=== PATIENT | female | born 1995 | race Caucasian/White ===

== ENCOUNTER 2020-04-01 23:39 | Emergency (ER) | payer SELFPAY ==
[~2020-04-01] VITALS: Ht 162.6 cm; Wt 52.2 kg
[2020-04-02] MEDS ORDERED: cefTRIAXone IM 250 MG VIAL IM ONE (01:15)
[2020-04-02] MEDS ORDERED: AZITHROMYCIN 250 MG TABLET. PO ONE (01:15)
[2020-04-02 01:25] LABS: BASO # 0.1 x10^3/uL (0.0-0.2); BASO % 1 % (0-3); EOS # 0.2 x10^3/uL (0.0-0.7); EOS % 2 % (0-3); HEMATOCRIT 33.3 % (36.0-47.0); HEMOGLOBIN 11.2 g/dL (12.0-15.5); LYMPH % 16 % (24-48); MEAN CORPUSCULAR HEMOGLOBIN 28 pg (25-35); MEAN CORPUSCULAR HGB CONC 34 g/dL (31-37); MEAN CORPUSCULAR VOLUME 83 fL (79-100); MONO # 0.8 x10^3/uL (0.0-1.1); MONO % 6 % (0-9); NEUT % 76 % (31-73); PLATELET COUNT 307 x10^3/uL (140-400); RED BLOOD COUNT 3.99 x10^6/uL (3.50-5.40); RED CELL DISTRIBUTION WIDTH 14.2 % (11.5-14.5); WHITE BLOOD COUNT 13.2 x10^3/uL (4.0-11.0)
--- NOTE | 2020-04-02 01:26 | PHYS DOC ---
Past Medical History Past Medical History: No Pertinent History Past Surgical History: No Surgical History Smoking Status: Current Every Day Smoker Alcohol Use: None General Adult EDM: Chief Complaint: SEXUALLY TRANSMITTED DISEASE HPI: HPI: The history was obtained from the patient. Patient is a 24-year-old female with no reported PMH who presents with a chief complaint of concern for STD. She states her boyfriend recently tested positive for chlamydia and gonorrhea yesterday. She is concerned she may have a similar infection given her sexual activity together. She does note vaginal bleeding but states she is currently on her period. She does note some small clot passage. States it is a typical amount for her period. She does not think that she is . Denies any abdominal pain. Denies any vaginal discharge. Denies low back pain. Denies syncope. Denies fevers. Denies urinary symptoms. No other complaints. Review of Systems: Review of Systems: Constitutional: Denies fever or chills. [] Eyes: Denies change in visual acuity. [] HENT: Denies nasal congestion or sore throat. [] Respiratory: Denies cough or shortness of breath. [] Cardiovascular: Denies chest pain or edema. [] GI: Denies abdominal pain, nausea, vomiting, bloody stools or diarrhea. [] : Positive for vaginal bleeding [] Musculoskeletal: Denies back pain or joint pain. [] Integument: Denies rash. [] Neurologic: Denies headache, focal weakness or sensory changes. [] Endocrine: Denies polyuria or polydipsia. [] Lymphatic: Denies swollen glands. [] Psychiatric: Denies depression or anxiety. [] Heart Score: Risk Factors: Risk Factors: DM, Current or recent (<one month) smoker, HTN, HLP, family history of CAD, obesity. Risk Scores: Score 0 - 3: 2.5% MACE over next 6 weeks - Discharge Home Score 4 - 6: 20.3% MACE over next 6 weeks - Admit for Clinical Observation Score 7 - 10: 72.7% MACE over next 6 weeks - Early Invasive Strategies Current Medications: Current Medications Medications (Trade) Dose Ordered Sig/Jose Raul Start Time Stop Time Status Last Admin Dose Admin Azithromycin (Zithromax) 1,000 mg 1X ONCE 04/02/20 01:15 04/02/20 01:16 DC Ceftriaxone Sodium (Rocephin Im) 250 mg 1X ONCE 04/02/20 01:15 04/02/20 01:16 DC Allergies: Allergies: Allergies Coded Allergies Type Severity Reaction Last Updated Verified No Known Drug Allergies 04/02/20 No Physical Exam: PE: Constitutional: Well developed, well nourished, no acute distress, non-toxic appearance. [] HENT: Normocephalic, atraumatic, bilateral external ears normal, oropharynx moist, no oral exudates, nose normal. [] Eyes: PERRLA, EOMI, conjunctiva normal, no discharge. [] Neck: Normal range of motion, no tenderness, supple, no stridor. [] Cardiovascular:Heart rate regular rhythm, no murmur [] Lungs & Thorax: Bilateral breath sounds clear to auscultation [] Abdomen: soft, no tenderness, no masses, no pulsatile masses. [] : Chaperoned by RN. Mild amount of bloody oozing. No vaginal discharge appreciated. Negative CMT. Skin: Warm, dry, no erythema, no rash. [] Back: No tenderness, no CVA tenderness. [] Extremities: No tenderness, no cyanosis, no clubbing, ROM intact, no edema. [] Neurologic: Alert and oriented X 3, normal motor function, normal sensory fu nction, no focal deficits noted. [] Psychologic: Affect normal, judgement normal, mood normal. [] Current Patient Data: Labs: Microbiology 04/02/20 Wet Prep - Final, Complete Laboratory Tests Test 04/02/20 01:17 White Blood Count 13.2 x10^3/uL Red Blood Count 3.99 x10^6/uL Hemoglobin 11.2 g/dL Hematocrit 33.3 % Mean Corpuscular Volume 83 fL Mean Corpuscular Hemoglobin 28 pg Mean Corpuscular Hemoglobin Concent 34 g/dL Red Cell Distribution Width 14.2 % Platelet Count 307 x10^3/uL Neutrophils (%) (Auto) 76 % Lymphocytes (%) (Auto) 16 % Monocytes (%) (Auto) 6 % Eosinophils (%) (Auto) 2 % Basophils (%) (Auto) 1 % Neutrophils # (Auto) 10.0 x10^3/uL Lymphocytes # (Auto) 2.0 x10^3/uL Monocytes # (Auto) 0.8 x10^3/uL Eosinophils # (Auto) 0.2 x10^3/uL Basophils # (Auto) 0.1 x10^3/uL Maternal Serum HCG Beta Subunit < 1 mIU/mL Current Medications Medications (Trade) Dose Ordered Sig/Jose Raul Route PRN Reason Start Time Stop Time Status Last Admin Dose Admin Ceftriaxone Sodium (Rocephin Im) 250 mg 1X ONCE IM 04/02/20 01:15 04/02/20 01:16 DC Azithromycin (Zithromax) 1,000 mg 1X ONCE PO 04/02/20 01:15 04/02/20 01:16 DC Metronidazole (Flagyl) 2,000 mg 1X ONCE PO 04/02/20 01:30 04/02/20 01:34 DC Vital Signs: Vital Signs Date Time Temp Pulse Resp B/P (MAP) Pulse Ox O2 Delivery O2 Flow Rate FiO2 04/02/20 00:08 98.2 106 20 115/64 (81) 97 Room Air 98.2 EKG: EKG: [] Radiology/Procedures: Radiology/Procedures: [] Course & Med Decision Making: Course & Med Decision Making Pertinent Labs and Imaging studies reviewed. (See chart for details) Patient is a well-appearing 24-year-old female presents with chief complaint of concern for STD. Physical exam noted above. Chlamydia and gonorrhea swabs were obtained and are pending. She will be treated prophylactically as she states her recent sexual partner did test positive. She was given Rocephin and azithromycin. Given the wet prep results 2 g of metronidazole were also administered. She denies any urinary symptoms. Furthermore she is declining to provide a urine sample. Beta-hCG level negative. CBC with hemoglobin 11.2. Mild leukocytosis of 13,000. Low concern for PID given she has no abdominal pain or back pain. I did offer ultrasound imaging to which she is also declining. States her bleeding is due to her current menstrual period. Overall I do feel she is appropriate for discharge home. Return precautions were discussed and understood. She is stable for discharge. Danny Disclaimer: Danny Disclaimer: This electronic medical record was generated, in whole or in part, using a voice recognition dictation system. Departure Departure Impression: Primary Impression: Concern about sexually transmitted disease in female without diagnosis Additional Impression: Vaginal bleeding Disposition: HOME, SELF-CARE Condition: GOOD Referrals: NO PCP (PCP) Patient Instructions: Sexually Transmitted Disease Additional Instructions: [facility] [address] [place] [address] [facility] [address] [place] [address] [facility] CARE [address] [place] [address] [facility] [address] [place] [address] [facility] [address] [place] [address] [facility] [address] [place] [address] [facility] [address] [place] [address] [facility] [address] [place] [address] [facility] [address] [place] [address] [facility] Department [address] [place] [address] Justicifation of Admission Dx: Justifications for Admission: Justification of Admission Dx: N/A FRED ELLER DO Apr 02, 2020 01:26
[2020-04-02] MEDS ORDERED: metroNIDAZOLE 500 MG TABLET PO ONE (01:30)
[2020-04-02 02:17] VITALS: BP 114/55
[2020-04-03 21:07] LABS: GC PROBE Positive (Negative)
== END 2020-04-02 02:36 | disposition home or self-care (01) ==
LOC: ER 23:39
DX: N93.9 Abnormal uterine and vaginal bleeding, unspecified (principal); F17.200 Nicotine dependence, unspecified, uncomplicated; Z20.2 Contact with and (suspected) exposure to infections with a predominantly sexual mode of transmission
CPT/HCPCS: 36415; 84702; 85025; 87491; 87591; 96372; 99283; J0696; Q0111

== ENCOUNTER 2020-09-29 06:32 | Emergency (ER) | payer SELFPAY ==
[~2020-09-29] VITALS: Ht 160 cm; Wt 59.1 kg
[2020-09-29 06:38] VITALS: BP 121/63
[2020-09-29] MEDS ORDERED: IBUPROFEN 200 MG TABLET. PO ONE (07:30)
[2020-09-29] MEDS ORDERED: IBUP-1007 PO (07:44)
--- NOTE | 2020-09-29 07:44 | ED.ADGEN ---
Past Medical History Past Medical History: No Pertinent History Past Surgical History: No Surgical History, Other Additional Past Surgical Histo: ORAL SX Smoking Status: Current Every Day Smoker Alcohol Use: None General Adult EDM: Chief Complaint: FOOT INJURY PAIN HPI: HPI: Patient is a 25 year old female coming in for worsening bilateral plantar foot pain. Patient is concerned because her feet to be getting cold. Is homeless has been walking around a lot. Says she has been wearing slippers instead of her sneakers because they are warmer. As the pain is burning and mostly in the bottoms of the feet. No other complaints, no other medical conditions, LMP 2 weeks ago. Review of Systems: Review of Systems: All other systems within normal limits except for as noted in the HPI Allergies: Allergies: Allergies Coded Allergies Type Severity Reaction Last Updated Verified No Known Drug Allergies 04/02/20 No Physical Exam: PE: Constitutional: Well developed, well nourished, no acute distress, non-toxic appearance. [] HENT: Normocephalic, atraumatic, bilateral external ears normal, nose normal. [] Eyes: PERRLA, conjunctiva normal, no discharge. [] Neck: No rigidity, supple, no stridor. [] Cardiovascular: Regular rate and rhythm, brisk cap refill [] Lungs & Thorax: Non labored symmetric respirations, no tachypnea or respiratory distress [] Abdomen: Soft, nondistended. Skin: Warm, dry, no erythema, no rash. Brisk cap refill on feet, no ulcers or lesions. Tenderness over heel and ball of foot. [] Back: Unremarkable Extremities: No deformities, range of motion grossly intact, no lower extremity edema [] Neurologic: Alert and oriented X 3, no focal deficits noted. [] Psychologic: Affect normal, judgement normal, mood normal. [] Current Patient Data: Vital Signs: Vital Signs Date Time Temp Pulse Resp B/P (MAP) Pulse Ox O2 Delivery O2 Flow Rate FiO2 09/29/20 06:38 98.2 103 16 121/63 (82) 98 Room Air 98.2 EKG: EKG: [] Heart Score: Risk Factors: Risk Factors: DM, Current or recent (<one month) smoker, HTN, HLP, family history of CAD, obesity. Risk Scores: Score 0 - 3: 2.5% MACE over next 6 weeks - Discharge Home Score 4 - 6: 20.3% MACE over next 6 weeks - Admit for Clinical Observation Score 7 - 10: 72.7% MACE over next 6 weeks - Early Invasive Strategies Radiology/Procedures: Radiology/Procedures: [] Course & Med Decision Making: Course & Med Decision Making No signs of frostbite or frostbite. Patient has benign skin exam, exam consistent with plantar fasciitis. [] Dragon Disclaimer: Dragon Disclaimer: This electronic medical record was generated, in whole or in part, using a voice recognition dictation system. Departure Departure Impression: Primary Impression: Plantar fasciitis Disposition: 01 DC HOME SELF CARE/HOMELESS Condition: STABLE Referrals: NO PCP (PCP) Additional Instructions: [facility] [address] [place] [address] [facility] [address] [place] [address] [facility] [address] [place] [address] [facility] [address] [place] [address] [facility] [address] [place] [address] [facility] [address] [place] [address] [facility] [address] [place] [address] [facility] [address] [place] [address] [facility] [address] [place] [address] [facility] [address] [place] [address] Scripts Ibuprofen (IBUPROFEN) 600 Mg Tablet 600 MG PO PRN Q6HRS PRN for PAIN, #20 TAB take with food or milk Prov: LOLY NG MD 09/29/20 LOLY NG MD Sep 29, 2020 07:44
== END 2020-09-29 08:04 | disposition home or self-care (01) ==
LOC: ER 06:32
DX: M72.2 Plantar fascial fibromatosis (principal); M79.671 Pain in right foot; M79.672 Pain in left foot; F17.200 Nicotine dependence, unspecified, uncomplicated; Z98.890 Other specified postprocedural states
CPT/HCPCS: 99282

== ENCOUNTER 2020-10-28 10:46 | Emergency (ER) | payer SELFPAY ==
[~2020-10-28] VITALS: Ht 160 cm; Wt 58.2 kg
[~2020-10-28 10:46] MED LIST: IBUP-1007 PO
[2020-10-28 11:34] VITALS: BP 121/74
[2020-10-28 14:06] LABS: BILIRUBIN,URINE SMALL (NEG); CLARITY,URINE CLOUDY; COLOR,URINE YELLOW; NITRITE,URINE NEGATIVE (NEG); PROTEIN,URINE NEGATIVE (NEG-TRACE)
[2020-10-28 14:21] LABS: RBC,URINE 0 /HPF (0-2)
[2020-10-28 14:22] LABS: BACTERIA,URINE 0 /HPF (0-FEW); WBC,URINE OCC /HPF (0-4)
[2020-10-28 14:31] LABS: BARBITURATES NEG (NEG); BENZODIAZEPINES NEG (NEG); CANNABINOIDS POS (NEG); COCAINE NEG (NEG); METHADONE NEG (NEG); OPIATES NEG (NEG); PHENCYCLIDINE NEG (NEG)
[2020-10-28 14:32] LABS: AMPHETAMINE/METHAMPHETAMINE POS (NEG)
[2020-10-28] MEDS ORDERED: DOXYCYCLINE HYCLATE 100 MG TABLET PO ONE (14:45)
[2020-10-28] MEDS ORDERED: cefTRIAXone IM 500 MG VIAL. IM ONE (14:45)
[2020-10-28] MEDS ORDERED: METR500T PO (15:31)
[2020-10-28] MEDS ORDERED: DOXY100T PO (15:31)
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
[2020-10-29 18:14] LABS: GC PROBE Negative (Negative)
== END 2020-10-28 15:42 | disposition home or self-care (01) ==
LOC: ER 10:46
DX: N76.0 Acute vaginitis (principal); A59.09 Other urogenital trichomoniasis; R20.8 Other disturbances of skin sensation; F17.200 Nicotine dependence, unspecified, uncomplicated; Z98.890 Other specified postprocedural states
CPT/HCPCS: 80307; 81001; 81025; 87491; 87529; 87591; 96372; 99284; J0696; Q0111

== ENCOUNTER 2021-11-09 18:12 | Observation (INO) | payer SELFPAY ==
[~2021-11-09 18:12] MED LIST changes: +DOXY100T PO; +METR500T PO
[2021-11-09] MEDS ORDERED: IV RINGERS,LACTATED 1000ML 1,000 ML IV SCH (19:15)
[2021-11-09 19:33] LABS: AMPHETAMINE/METHAMPHETAMINE NEG (NEG); BARBITURATES NEG (NEG); BENZODIAZEPINES NEG (NEG); CANNABINOIDS POS (NEG); COCAINE POS (NEG); METHADONE NEG (NEG); OPIATES NEG (NEG); PHENCYCLIDINE NEG (NEG)
[2021-11-09 19:50] LABS: BACTERIA,URINE MODERATE /HPF (0-FEW); RBC,URINE 0 /HPF (0-2); YEAST,URINE PRESENT /HPF
[2021-11-09 21:53] LABS: BASO # 0.1 x10^3/uL (0.0-0.2); BASO % 1 % (0-3); EOS # 0.3 x10^3/uL (0.0-0.7); EOS % 2 % (0-3); HEMATOCRIT 29.2 % (36.0-47.0); HEMOGLOBIN 9.2 g/dL (12.0-15.5); LYMPH # 2.2 x10^3/uL (1.0-4.8); LYMPH % 15 % (24-48); MEAN CORPUSCULAR HEMOGLOBIN 24 pg (25-35); MEAN CORPUSCULAR HGB CONC 32 g/dL (31-37); MEAN CORPUSCULAR VOLUME 75 fL (79-100); MONO # 0.9 x10^3/uL (0.0-1.1); MONO % 6 % (0-9); NEUT # 11.4 x10^3/uL (1.8-7.7); NEUT % 77 % (31-73); PLATELET COUNT 160 x10^3/uL (140-400); RED BLOOD COUNT 3.87 x10^6/uL (3.50-5.40); RED CELL DISTRIBUTION WIDTH 16.6 % (11.5-14.5); WHITE BLOOD COUNT 14.9 x10^3/uL (4.0-11.0)
[2021-11-09 22:10] LABS: ALBUMIN 2.8 g/dL (3.4-5.0); ALBUMIN/GLOBULIN RATIO 0.7 (1.0-1.7); CALCIUM 9.2 mg/dL (8.5-10.1); CREATININE 0.6 mg/dL (0.6-1.0); GFR 119.9; POTASSIUM 3.7 mmol/L (3.5-5.1); TOTAL BILIRUBIN 0.3 mg/dL (0.2-1.0); TOTAL PROTEIN 7.1 g/dL (6.4-8.2); URIC ACID 4.5 mg/dL (2.6-6.0)
[2021-11-12 17:19] LABS: RUBELLA IGG ANTIBODY 1.9 index (Immune >0.99)
== END 2021-11-09 21:42 | disposition home or self-care (01) ==
LOC: 3 SO LND 18:12
PROVIDERS: ADMIT Obstetrics & Gynecology; ATTEND Obstetrics & Gynecology
DX: O62.9 Abnormality of forces of labor, unspecified (principal); O99.891 Other specified diseases and conditions complicating pregnancy; M54.9 Dorsalgia, unspecified; O26.893 Other specified pregnancy related conditions, third trimester; R10.2 Pelvic and perineal pain; Z3A.41 41 weeks gestation of pregnancy; Z79.899 Other long term (current) drug therapy
CPT/HCPCS: 36415; 59025; 80053; 80307; 81001; 83615; 84550; 85025; 86592; 86703; 86762; 86787; 86803; 86850; 86900; 86901; 87086; 87340; G0378; G0379

== ENCOUNTER 2021-11-11 15:07 | Inpatient (IN) | payer SELFPAY ==
[~2021-11-11] VITALS: Ht 160 cm; Wt 70.0 kg
[2021-11-11] MEDS ORDERED: IV RINGERS,LACTATED 1000ML 1,000 ML IV PRN (15:30)
[2021-11-11] MEDS ORDERED: IV RINGERS,LACTATED 1000ML 1,000 ML IV SCH (15:45)
[2021-11-11] MEDS ORDERED: TERBUTALINE 1 MG/ML VIAL. SQ PRN (15:45)
[2021-11-11] MEDS ORDERED: 0.9 % SODIUM CHLORIDE 10 ML DISP.SYRIN. IV PRN ×2 (15:45→17:00)
[2021-11-11] MEDS ORDERED: LIDOCAINE 1% PF 30 ML VIAL. INJ PRN (15:45)
[2021-11-11] MEDS ORDERED: OXYTOCIN 30 UNIT/500 ML PREMIX 500 ML IV PRN ×3 (15:45→17:00)
[2021-11-11] MEDS ORDERED: fentaNYL PF VIAL 100 MCG/2 ML VIAL IVP ONE (16:00)
[2021-11-11 16:12] VITALS: BP 139/83
[2021-11-11 16:21] LABS: BASO # 0.1 x10^3/uL (0.0-0.2); BASO % 0 % (0-3); EOS # 0.2 x10^3/uL (0.0-0.7); EOS % 1 % (0-3); HEMATOCRIT 30.4 % (36.0-47.0); HEMOGLOBIN 9.5 g/dL (12.0-15.5); LYMPH # 1.6 x10^3/uL (1.0-4.8); LYMPH % 10 % (24-48); MEAN CORPUSCULAR HEMOGLOBIN 23 pg (25-35); MEAN CORPUSCULAR HGB CONC 31 g/dL (31-37); MEAN CORPUSCULAR VOLUME 74 fL (79-100); MONO # 0.7 x10^3/uL (0.0-1.1); MONO % 4 % (0-9); NEUT # 13.4 x10^3/uL (1.8-7.7); NEUT % 84 % (31-73); PLATELET COUNT 180 x10^3/uL (140-400); RED BLOOD COUNT 4.08 x10^6/uL (3.50-5.40); RED CELL DISTRIBUTION WIDTH 16.7 % (11.5-14.5); WHITE BLOOD COUNT 15.9 x10^3/uL (4.0-11.0)
--- NOTE | 2021-11-11 16:53 | PDOC1 ---
[facility] H&P Date of Admission: Date of Admission: Nov 11, 2021 at 15:07 History of Present Illness: presents at 41.0 weeks by LMP. No care. Reports onset of UCs at 1300, increasing in frequency and intensity prior to hospital arrival. SVE 5cm on admission. GBS unknown, no known history of GBS sepsis in prior deliveries. PMH unremarkable. Previous x 2. Pelvis proven to 8lbs. History of substance abuse, cocaine and MJ per UDS. A+ Hep B Neg Hep C Neg HIV Neg RPR NR Rubella: Pending GBS: Pending Past Medical History: Cardiovascular: No pertinent hx Pulmonary: No pertinent hx GI: No pertinent hx Heme/Onc: No pertinent hx Hepatobiliary: No pertinent hx Psych: No pertinent hx Rheumatologic: No pertinent hx Infectious disease: No pertinent hx ENT: No pertinent hx Renal/: No pertinent hx Endocrine: No pertinent hx Dermatology: No pertinent hx Grav: 4 Para: 2 Social History: Smoke: No ALCOHOL: none Allergies: Coded Allergies: No Known Drug Allergies (Unverified , 04/02/20) Physical Exam: Vital Signs: Vital Signs Date Time Temp Pulse Resp B/P (MAP) Pulse Ox O2 Delivery O2 Flow Rate FiO2 11/11/21 16:12 97.6 111 22 139/83 (101) 97.6 PE: GENERAL: No apparent distress. Alert and oriented. HEENT: Head normocephalic, atraumatic. NECK: Supple LUNGS: Clear to auscultation. HEART: RRR, S1, S2 present, pulses intact ABDOMEN: Soft, positive bowel sounds. EXTREMITIES: No cyanosis or edema. NEUROLOGIC: Normal speech, normal tone PSYCHIATRIC: Normal affect, normal mood. SKIN: No ulceration. Labs: Laboratory Tests Test 11/11/21 15:30 White Blood Count 15.9 x10^3/uL (4.0-11.0) H Red Blood Count 4.08 x10^6/uL (3.50-5.40) Hemoglobin 9.5 g/dL (12.0-15.5) L Hematocrit 30.4 % (36.0-47.0) L Mean Corpuscular Volume 74 fL (79-100) L Mean Corpuscular Hemoglobin 23 pg (25-35) L Mean Corpuscular Hemoglobin Concent 31 g/dL (31-37) Red Cell Distribution Width 16.7 % (11.5-14.5) H Platelet Count 180 x10^3/uL (140-400) Neutrophils (%) (Auto) 84 % (31-73) H Lymphocytes (%) (Auto) 10 % (24-48) L Monocytes (%) (Auto) 4 % (0-9) Eosinophils (%) (Auto) 1 % (0-3) Basophils (%) (Auto) 0 % (0-3) Neutrophils # (Auto) 13.4 x10^3/uL (1.8-7.7) H Lymphocytes # (Auto) 1.6 x10^3/uL (1.0-4.8) Monocytes # (Auto) 0.7 x10^3/uL (0.0-1.1) Eosinophils # (Auto) 0.2 x10^3/uL (0.0-0.7) Basophils # (Auto) 0.1 x10^3/uL (0.0-0.2) Platelet Estimate Pending SARS-CoV-2 Antigen (Rapid) Negative (NEGATIVE) Laboratory Tests 11/11/21 15:30 Laboratory Tests 11/11/21 15:30 Assessment & Plan: [id number] @ 41.0 weeks 1. Spontaneous Labor 2. Anemia 3. GBS unknown 4. Substance abuse 5. No PNC 6. Cat I FHT, 125, moderate variability, + accels, early decels. MARGARETTE MCCLOUD CNM Nov 11, 2021 16:53
[2021-11-11 16:57] LABS: % BANDS 4 % (0-9); % EOS 2 % (0-5); % LYMPHS 6 % (24-48); % MONOS 4 % (0-10); % SEGS 84 % (35-66); MICROCYTOSIS SLIGHT; PLT ESTIMATE ADEQUATE (ADEQUATE)
[2021-11-11 16:58] LABS: BURR CELLS PRESENT
--- NOTE | 2021-11-11 16:59 | PDOC4 ---
VAGINAL DELIVERY DATE DATE: 11/11/21 TIME: 16:57 TIME 1630 : 4 Para: 3 EDC: Nov 04, 2021 EGA: 41.0 VAGINAL DELIVERY: VTX VACCUM ASSISTED: No PLACENTA: Spontaneous 7/9 SEX: Female WEIGHT Weight [8lb4oz] Nuchal Cord: No Amniotic Fluid: Clear PAIN: Natural EPISIOTOMY: No EXTENSION: No EBL 500mL CONDITION Both mother and infant are stable. Routine PP course anticipated. ADDITIONAL NOTES Perineum intact. Signs of Intrauterine Infectio: None Shoulder Dystocia: No DIAGNOSIS MARGARETTE CHURCHILL CNM Nov 11, 2021 16:59
[2021-11-11] MEDS ORDERED: SIMETHICONE 80 MG TAB.CHEW PO PRN (17:00)
[2021-11-11] MEDS ORDERED: HYDROcodone/APAP 5/325MG 1 TAB TABLET PO PRN ×2 (17:00)
[2021-11-11] MEDS ORDERED: BENZOCAINE 20% TOPICAL AEROSOL SPRAY 57GM CAN. TP PRN (17:00)
[2021-11-11] MEDS ORDERED: MAG HYDROX/ALUMINUM HYD/SIMETH 30 ML ORAL.SUSP PO PRN (17:00)
[2021-11-11] MEDS ORDERED: ZOLPIDEM 5 MG TABLET. PO PRN (17:00)
[2021-11-11] MEDS ORDERED: MMR per PROTOCOL. MC PRN (17:00)
[2021-11-11] MEDS ORDERED: HYDROCORTISONE 1% TOPICAL OINTMENT 30GM TUBE. TP PRN (17:00)
[2021-11-11] MEDS ORDERED: IBUPROFEN 400 MG TABLET. PO PRN (17:00)
[2021-11-11] MEDS ORDERED: diphenhydrAMINE HCL 25 MG CAPSULE PO PRN (17:00)
[2021-11-11] MEDS ORDERED: PHENYLEPH/MINERAL OIL/PETROLAT RECTAL OINTMENT TUBE. RC PRN (17:00)
[2021-11-11] MEDS ORDERED: TDaP (BOOSTRIX) per PROTOCOL. MC PRN (17:00)
[2021-11-11] MEDS: IBUPROFEN 400 MG TABLET. PO PRN (19:46)
[2021-11-11 20:05] VITALS: BP 119/71
[2021-11-12 00:20] VITALS: BP 122/76
[2021-11-12 04:30] VITALS: BP 128/69
[2021-11-12] MEDS: IBUPROFEN 400 MG TABLET. PO PRN ×2 (04:44→10:33)
[2021-11-12] MEDS: ACETAMINOPHEN 325 MG TABLET. PO PRN ×3 (04:44→18:31)
[2021-11-12 08:15] VITALS: BP 118/71
[2021-11-12 09:54] LABS: BASO # 0.1 x10^3/uL (0.0-0.2); BASO % 0 % (0-3); EOS # 0.2 x10^3/uL (0.0-0.7); EOS % 1 % (0-3); HEMATOCRIT 26.5 % (36.0-47.0); HEMOGLOBIN 8.2 g/dL (12.0-15.5); LYMPH % 12 % (24-48); MEAN CORPUSCULAR HEMOGLOBIN 23 pg (25-35); MEAN CORPUSCULAR HGB CONC 31 g/dL (31-37); MEAN CORPUSCULAR VOLUME 75 fL (79-100); MONO % 6 % (0-9); NEUT # 13.4 x10^3/uL (1.8-7.7); NEUT % 80 % (31-73); PLATELET COUNT 153 x10^3/uL (140-400); RED BLOOD COUNT 3.52 x10^6/uL (3.50-5.40); RED CELL DISTRIBUTION WIDTH 16.7 % (11.5-14.5); WHITE BLOOD COUNT 16.8 x10^3/uL (4.0-11.0)
--- NOTE | 2021-11-12 09:55 | PDOC ---
FULL TIME PARAMEDIC PROGRESS NOTE Date of Service: DATE: 11/12/21 TIME: 09:54 Subjective: Pt with good pain control. Mary Anne PO. Voiding. Minimal lochia. Objective: Vital Signs: Vital Signs Date Time Temp Pulse Resp B/P (MAP) Pulse Ox O2 Delivery O2 Flow Rate FiO2 11/11/21 16:12 97.6 111 22 139/83 (101) 97.6 11/11/21 20:05 100 Room Air Vital Signs Date Time Temp Pulse Resp B/P (MAP) Pulse Ox O2 Delivery O2 Flow Rate FiO2 11/12/21 04:30 98.4 88 16 128/69 (88) 99 Room Air 98.4 Labs: Laboratory Tests Test 11/11/21 15:30 White Blood Count 15.9 x10^3/uL (4.0-11.0) H Red Blood Count 4.08 x10^6/uL (3.50-5.40) Hemoglobin 9.5 g/dL (12.0-15.5) L Hematocrit 30.4 % (36.0-47.0) L Mean Corpuscular Volume 74 fL (79-100) L Mean Corpuscular Hemoglobin 23 pg (25-35) L Mean Corpuscular Hemoglobin Concent 31 g/dL (31-37) Red Cell Distribution Width 16.7 % (11.5-14.5) H Platelet Count 180 x10^3/uL (140-400) Neutrophils (%) (Auto) 84 % (31-73) H Lymphocytes (%) (Auto) 10 % (24-48) L Monocytes (%) (Auto) 4 % (0-9) Eosinophils (%) (Auto) 1 % (0-3) Basophils (%) (Auto) 0 % (0-3) Neutrophils # (Auto) 13.4 x10^3/uL (1.8-7.7) H Lymphocytes # (Auto) 1.6 x10^3/uL (1.0-4.8) Monocytes # (Auto) 0.7 x10^3/uL (0.0-1.1) Eosinophils # (Auto) 0.2 x10^3/uL (0.0-0.7) Basophils # (Auto) 0.1 x10^3/uL (0.0-0.2) Segmented Neutrophils % 84 % (35-66) H Band Neutrophils % 4 % (0-9) Lymphocytes % 6 % (24-48) L Monocytes % 4 % (0-10) Eosinophils % 2 % (0-5) Platelet Estimate Adequate (ADEQUATE) Microcytosis Slight Adore Cells Present SARS-CoV-2 Antigen (Rapid) Negative (NEGATIVE) Laboratory Tests 11/11/21 15:30 Laboratory Tests 11/11/21 15:30 Physical Exam: GENERAL: No apparent distress. Alert and oriented. HEENT: Head normocephalic, atraumatic. NECK: Supple LUNGS: Clear to auscultation. HEART: RRR, S1, S2 present, pulses intact ABDOMEN: Soft, positive bowel sounds. EXTREMITIES: No cyanosis or edema. NEUROLOGIC: Normal speech, normal tone PSYCHIATRIC: Normal affect, normal mood. SKIN: No ulceration. FFNT below umb No C/C/E Assessment & Plan: A/P 26y [id number] #1 s/p 1.) PP doing well 2.) No care drop in labs ordered 3.) Anemia Hgb 9.5 -> pending 4.) H/o substance abuse 5.) Cont PP care CARMEN VILLASENOR MD Nov 12, 2021 09:55
[2021-11-12] MEDS: DOCUSATE SODIUM 100 MG CAPSULE. PO PRN (10:33)
[2021-11-12] MEDS: FERROUS SULFATE 325 MG TABLET. PO SCH ×2 (10:34→18:31)
[2021-11-12 14:45] VITALS: BP 134/64
--- NOTE | 2021-11-12 16:53 | NUR ---
SS following up with referral regarding mother tested positive for THC and Cocaine on 11/09/2021. Mother also reporting that other children have been adopted. SS reviewed mother and chart and spoke with RN, Mariah. Mother reported to RN that she lives in [facility]. Mother provided registration with [facility]. Per RN, mother is bonding with infant. DCF hotline report made for concerns with substance use, social situation, and previous adoption of other children. Intake# [id number]. RN Mariah, notified. SS will continue to follow.
[2021-11-12 18:30] VITALS: BP 128/74
[2021-11-12 20:00] VITALS: BP 112/69
[2021-11-13 02:30] VITALS: BP 129/81
[2021-11-13 07:36] VITALS: BP 129/80
[2021-11-13] MEDS: FERROUS SULFATE 325 MG TABLET. PO SCH ×2 (08:32→18:03)
[2021-11-13] MEDS: DOCUSATE SODIUM 100 MG CAPSULE. PO PRN ×2 (08:32→18:03)
[2021-11-13] MEDS: MULTIVITAMIN with MINERAL TABLET. PO SCH (08:33)
--- NOTE | 2021-11-13 09:59 | NUR ---
SS following up. SS met with mother and clarified demographics. Mother reported that she is currently living at [address] [place] [address]. Mother reported that he [place] address registration listed is old. Mother reported that she has a referral to WIC in place. Mother reported that she has resources for [employer] and that Medicaid applications for bother she and baby have been completed. Mother reported having good family support and transportation. Mother reported that her father is bringing car seat to hospital today. SS sent e-mails to [facility] supervisors updating them on mother's current address and residency and requesting update on hotline report made on 11/12/2021, Intake# [id number]. PAT team meeting with mother today to provide resources. SS will continue to follow.
--- NOTE | 2021-11-13 16:15 | NUR ---
1615 RN to room, VS stable no c/o pain. SL dc'd at this time, catheter intact with pressure applied to site and secured with band aid. patient asks when DC will be. Patient states she was told she could be dc'd after 1pm. Rn explains to parents about baby has not been Dc'd yet. Patient asks to speak with the baby Dr. Mother states "I will not leave without my baby". The SALVAGE MECHANIC was notified and will visit with parents.
[2021-11-13] MEDS: IBUPROFEN 400 MG TABLET. PO PRN (18:03)
--- NOTE | 2021-11-13 18:16 | NUR ---
1710 T Oleg PERL DEVELOPER and RN to room to speak with parents. Parents were talked to regarding baby not being dc'd and the need to stay until we hear back from the state regarding referal made. Mom was explained to about testing positive for cocaine and Marijuana and the process to assure safety for the baby. Mom became upset and surprised of test results, denying cocaine use and stating "you all must be on something". patient was explained about concerns for the babies well being and safety explaining how staff has to remind her to feed baby throughout the night and a gap of 4.5 hrs with no feeds even after educating mom on feedings. Mom states " my baby is fine, I feed her when I want to. This is BS". Patient asks for a recheck on urine stating "I do not use cocaine". Mom was upset saying "I will not leave without my baby". Parents were told that staff will continue to attemt to reach out to the state however being so late in the day, most likely the plan is to stay the night. Jonny CHANEY was called and notified with no other orders at this time. 1800 RN to room discussed plan with patient and SO. Parents calm and voiced understanding. Baby remains rooming in with mom at this time.
--- NOTE | 2021-11-13 19:00 | PDOC ---
PATCHER PROGRESS NOTE Date of Service: DATE: 11/13/21 TIME: 18:54 Subjective: Doing well. Pain well managed with PO meds. Tolerates activity, diet, and voiding without difficulty. Meeting with [facility] tomorrow, requests formula in the interim. Objective: Objective: FF@U/1, scant lochia. Vital Signs: Vital Signs Date Time Temp Pulse Resp B/P (MAP) Pulse Ox O2 Delivery O2 Flow Rate FiO2 11/12/21 08:15 97.9 80 20 118/71 (87) 99 Room Air 97.9 Vital Signs Date Time Temp Pulse Resp B/P (MAP) Pulse Ox O2 Delivery O2 Flow Rate FiO2 11/13/21 09:00 Room Air 11/13/21 07:36 98.2 90 18 129/80 (96) 100 98.2 Physical Exam: GENERAL: No apparent distress. Alert and oriented. HEENT: Head normocephalic, atraumatic. NECK: Supple LUNGS: Clear to auscultation. HEART: RRR, S1, S2 present, pulses intact ABDOMEN: Soft, positive bowel sounds. EXTREMITIES: No cyanosis or edema. NEUROLOGIC: Normal speech, normal tone PSYCHIATRIC: Normal affect, normal mood. SKIN: No ulceration. Assessment & Plan: PPD#2 Routine PP course, DCFS pending 2/2 +UA. Discharge instructions reviewed to include s/sx of normal engorgement vs. mastitis, pain/bleeding precautions, preeclampsia alarm symptoms, and normal baby blues vs. sx concerning for PPD. Pt. and partner v/u of all. A/P 26y [id number] #1 s/p 1.) PP doing well 2.) No care drop in labs ordered 3.) Anemia Hgb 9.5 -> 8.2 - FeSO4 BID 4.) H/o substance abuse MARGARETTE MCCLOUD CNM Nov 13, 2021 19:00
[2021-11-13 20:10] LABS: RUBELLA IGG ANTIBODY 1.76 index (Immune >0.99)
[2021-11-13 21:00] VITALS: BP 129/75
[2021-11-14] MEDS: ACETAMINOPHEN 325 MG TABLET. PO PRN (00:51)
[2021-11-14] MEDS: DOCUSATE SODIUM 100 MG CAPSULE. PO PRN ×2 (03:02→09:22)
[2021-11-14] MEDS: IBUPROFEN 400 MG TABLET. PO PRN ×2 (03:02→12:51)
[2021-11-14 06:03] VITALS: BP 123/74
[2021-11-14] MEDS: FERROUS SULFATE 325 MG TABLET. PO SCH ×2 (08:11→17:55)
[2021-11-14] MEDS ORDERED: DIPHTH,PERTUSS(ACELL),TET TOX 0.5 ML DISP.SYRIN. VAX IM ONE (09:00)
[2021-11-14] MEDS ORDERED: IBUP-1060 PO (09:14)
[2021-11-14] MEDS ORDERED: DOCU-109 PO (09:14)
[2021-11-14] MEDS ORDERED: FERR325T14 PO (09:14)
[2021-11-14] MEDS: MULTIVITAMIN with MINERAL TABLET. PO SCH (09:20)
--- NOTE | 2021-11-14 10:55 | PDOC ---
BARREL POLISHER INSIDE PROGRESS NOTE Date of Service: DATE: 11/14/21 TIME: 10:55 Subjective: Pt with good pain control. Mary Anne PO. Voiding. Minimal lochia. Objective: Vital Signs: Vital Signs Date Time Temp Pulse Resp B/P (MAP) Pulse Ox O2 Delivery O2 Flow Rate FiO2 11/13/21 07:36 98.2 90 18 129/80 (96) 100 Room Air 98.2 Vital Signs Date Time Temp Pulse Resp B/P (MAP) Pulse Ox O2 Delivery O2 Flow Rate FiO2 11/14/21 09:00 Room Air 11/14/21 06:03 98.0 91 20 123/74 (90) 100 98.0 Physical Exam: GENERAL: No apparent distress. Alert and oriented. HEENT: Head normocephalic, atraumatic. NECK: Supple LUNGS: Clear to auscultation. HEART: RRR, S1, S2 present, pulses intact ABDOMEN: Soft, positive bowel sounds. EXTREMITIES: No cyanosis or edema. NEUROLOGIC: Normal speech, normal tone PSYCHIATRIC: Normal affect, normal mood. SKIN: No ulceration. FFNT below umb No C/C/E Assessment & Plan: A/P 26y [id number] #3 s/p 1.) PP doing well 2.) No care drop in labs reviewed from previous visit 3.) Anemia Hgb 9.5 -> pending 4.) H/o substance abuse cocaine pos at last visit, SS consulted 5.) D/c home after consult CARMEN VILLASENOR MD Nov 14, 2021 10:55
--- NOTE | 2021-11-14 17:27 | NUR ---
1350 DSS here to visit with patient and SO. RN advised of a plan has been placed for parents with DSS and [facility] staff member stated it was ok to DC baby with parents. TOURIST GUIDE notified and out to nurses station to visit with DSS staff member. TOURIST GUIDE will move forward to get baby dc'd. 1410 RN in room to discuss plan and prepare for dc. Parents are calm and cooperative. RN observed an increase in care with baby. 1700 RN into room to give DC instructions and obtain safety seat registration information. When evaluating car seat, car seat is an older model and has in 2017. Parent reaching out to resource staff with no answer at this time. Dad contacting friends and or family for possible loaner of car seat. Dc instructions given to mother, mother appears pre occupied with messaging on cell phone to obtain car seat. RN stops giving instructions until mother is able to listen. Post care instructions given with care instructions. mom voiced understanding. DC appointments reviewed with patient for herself and baby. Will continue to observe
[2021-11-14 19:40] VITALS: BP 139/82
--- NOTE | 2021-11-14 19:46 | NUR ---
Ambulated to car for dischaege. Car seat checked, vitals done and WNL. pt denies any needs or concerns
--- NOTE | 2021-11-22 11:11 | PATHOLOGY ---
[facility] Accession Number: [id number] . 01 Material submitted: . placenta - PLACENTA AND CORD . 01 Clinical history: . TERM 1UP SPONTANEOUS VAGINAL DELIVERY L3, NO PNC, PRECIPITOUS DELIVERY . 02 Diagnosis: 818 gram term placenta with attached membranes and umbilical cord: - Large for estimated gestational age placenta (greater than 97th percentile). - Eccentric insertion of umbilical cord. - Acute chorionitis and early chorioamnionitis, focal. - Placental infarcts, few, the largest measuring 2.7 cm in greatest dimension. (JPM/db; 11/14/2021) LBQ 11/14/2021 1622 Local . 02 Electronically signed: . Subhash Villasenor MD, Pathologist NPI- [id number] . 01 Gross description: . Fixative: Formalin Labeled: Per container: Placenta. Per requisition: Placenta and cord Specimen received: Kohli placenta with attached membranes and umbilical cord Dimensions: 21.7 x 20.1 x 4.2 cm membranes appearance: Complete, monteiro-pink, transparent and glistening membrane insertion: Marginal Umbilical cord: 36.2 cm in length, 1.1-1.3 cm in diameter Umbilical cord insertion: Eccentric, 4.3 cm from the closest placental disc edge Number of umbilical vessels: 3 Umbilical cord appearance: Monteiro-white, displaying 3-4 coils per 10 cm segment Trimmed placental weight: 818 g surface: Blue-purple, displaying congested vasculature in a normal arborizing pattern, a moderate amount of subchorionic fibrin deposition and a marked separation of the amnion Maternal surface: Complete, red-brown, congested Parenchyma: Sectioning reveals 2 discrete lesions. The first lesion measures 2.7 x 2.1 x 2.0 cm, appears monteiro-white, irregularly shaped, indurated, partially solid and partially cystic. Lesion 1 is located in the mid zone, 8.0 cm from the closest disc edge, and approximately 7.0 cm from the umbilical cord insertion site. The second lesion measures 0.7 x 0.7 x 0.4 cm and appears monteiro-white, irregularly shaped, solid and indurated. Lesion 2 is centrally located, 8.1 cm from the closest disc edge, 3.5 cm from the umbilical cord insertion site and 7.5 cm from lesion 1. The remaining parenchyma appears red, spongy and congested. . Hospital Scientist sections are submitted as follows: A1 proximal and distal umbilical cord A2 membranes, rolled A3 lesion 1, represented A4 lesion 2, represented A5 financial services sales representative peripheral placenta A6 financial services sales representative central placenta (J; 11/12/2021) JGG/J 11/12/2021 1859 Local . 02 Pathologist provided ICD-10: O41.1230 . 02 CPT . 143959 Specimen Comment: A courtesy copy of this report has been sent to [phone], [phone] Specimen Comment: [id number] Specimen Comment: Report sent to DR. VILLASENOR / DR MCCLOUD Specimen Comment: A duplicate report has been generated due to demographic updates. Performed at: 01 [facility] [address], [place] [id number] MD Sahil Hollis MD Phone: [phone] Performed at: 02 [facility] [address] [place], [place] [id number] MD Subhash Villasenor MD Phone: [phone]
== END 2021-11-14 19:25 | disposition home or self-care (01) | DRG 807 ==
LOC: 3 SO LND 15:07 → OBSVTOIN 16:54 → 3 SO LND 11-12 08:58
PROVIDERS: ADMIT Obstetrics & Gynecology; ATTEND Obstetrics & Gynecology
PROC: 10E0XZZ Delivery of Products of Conception, External Approach (ICD-10-PCS; principal; 2021-11-11)
PROC: 3E0234Z Introduction of Serum, Toxoid and Vaccine into Muscle, Percutaneous Approach (ICD-10-PCS; 2021-11-14)
DX: O99.02 Anemia complicating childbirth (principal); Z37.0 Single live birth; Z3A.41 41 weeks gestation of pregnancy; Z23 Encounter for immunization; Z20.822 Contact with and (suspected) exposure to COVID-19; D64.9 Anemia, unspecified
CPT/HCPCS: 36415; 85007; 85025; 86762; 86787; 86850; 86900; 86901; 87426; 88307; 90471; 90715; G0378; G0379; J2590; J3010; J7120; U0003

== ENCOUNTER 2021-11-17 22:51 | Inpatient (IN) | payer SELFPAY ==
[~2021-11-17] VITALS: Ht 160 cm; Wt 56.9 kg
[~2021-11-17 22:51] MED LIST changes: +DOCU-109 PO; +FERR325T14 PO; +IBUP-1060 PO
[2021-11-17 23:59] LABS: BASO # 0.2 x10^3/uL (0.0-0.2); BASO % 1 % (0-3); EOS # 0.4 x10^3/uL (0.0-0.7); EOS % 3 % (0-3); HEMATOCRIT 33.9 % (36.0-47.0); LYMPH # 2.9 x10^3/uL (1.0-4.8); LYMPH % 22 % (24-48); MEAN CORPUSCULAR HEMOGLOBIN 25 pg (25-35); MEAN CORPUSCULAR HGB CONC 33 g/dL (31-37); MEAN CORPUSCULAR VOLUME 75 fL (79-100); MONO # 0.8 x10^3/uL (0.0-1.1); MONO % 7 % (0-9); NEUT # 8.8 x10^3/uL (1.8-7.7); NEUT % 68 % (31-73); PLATELET COUNT 396 x10^3/uL (140-400); RED BLOOD COUNT 4.51 x10^6/uL (3.50-5.40); RED CELL DISTRIBUTION WIDTH 18.1 % (11.5-14.5)
[2021-11-18 00:07] LABS: CALCIUM 9.1 mg/dL (8.5-10.1); CREATININE 0.7 mg/dL (0.6-1.0); GFR 100.4; POTASSIUM 3.7 mmol/L (3.5-5.1)
[2021-11-18 00:13] LABS: ALBUMIN 3.5 g/dL (3.4-5.0); ALBUMIN/GLOBULIN RATIO 0.8 (1.0-1.7); TOTAL BILIRUBIN 0.4 mg/dL (0.2-1.0)
[2021-11-18] MEDS ORDERED: IBUPROFEN 400 MG TABLET. PO ONE (00:30)
[2021-11-18] MEDS ORDERED: ACETAMINOPHEN 500 MG TABLET PO ONE (00:30)
--- NOTE | 2021-11-18 01:02 | RAD ---
EXAM: ULTRASOUND PELVIS INDICATION: Reason: 6 days ; vaginal bleeding; evaluate for retained products / Spl. Instru ctions: / History: . Last menstrual period was . COMPARISON: None available. TECHNIQUE: Transabdominal sonography was performed. FINDINGS: The uterus measures 13.5 x 10.8 x 8.3 cm. The endometrial echocomplex measures 2.8 cm. The endometri al echocomplex is heterogeneous with echogenic material extending through the cervical canal. The ovaries are not seen. There is no free fluid. IMPRESSION: Complex collection in the endocervical canal, may represent hemorrhagic products. Endometrial echocom plex measures 2.8 cm Electronically signed by: Farhat Dowell MD (11/18/2021 1:00 AM) JARRETT
--- NOTE | 2021-11-18 02:52 | PHYS DOC ---
Past Medical History Past Medical History: No Pertinent History Past Surgical History: No Surgical History, Other Additional Past Surgical Histo: ORAL SX Smoking Status: Current Every Day Smoker Alcohol Use: Occasionally Adult General Chief Complaint Chief Complaint: VAGINAL BLEEDING HPI HPI The patient is a 26-year-old female, G3, P3 about 6 days post of a healthy here at [facility]. Ms. Napier presents for evaluation of vaginal bleeding since her discharge from the hospital which is considerably more voluminous than she has had with her prior 2 pregnancies. She has bleeding through about 1 pad every 2 hours and has been for several days. Patient has a secondary concern regarding an area that is sore just below her clitoral mak. States this has been present ever since her delivery. She is concerned that she may be "torn" there. Patient denies fevers, nausea or vomiting, upper respiratory congestion/rhinorrhea, cough, sore throat, shortness of breath or chest pain of any kind, abdominal pain of any kind, flank pain, midline back pain, dysuria, hematuria, polyuria or oliguria, changes in bowel habits, pain or swelling to arms or legs. Discussed with patient a plan for basic labs, urine and pelvic ultrasound to rule out retained products of conception. She agreed to other studies but declined to give a urine sample, stating "they did me dirty here last time when I gave a urine sample." Vital signs are appropriate here and the patient is in no acute distress. Review of Systems Review of Systems A 12 point review of systems was completed and was negative except where noted in HPI above. Current Medications Current Medications Current Medications Medications (Trade) Dose Ordered Sig/Joser Aul Start Time Stop Time Status Last Admin Dose Admin Acetaminophen (Tylenol) 1,000 mg 1X ONCE 11/18/21 00:30 11/18/21 00:31 DC Ibuprofen (Motrin) 800 mg 1X ONCE 11/18/21 00:30 11/18/21 00:31 DC Allergies Allergies Allergies Coded Allergies Type Severity Reaction Last Updated Verified No Known Drug Allergies 04/02/20 No Physical Exam Physical Exam 26-year-old female appearing nontoxic and in no acute distress. Head is normocephalic and atraumatic. Neck is supple and nontender. Oropharynx is moist. Lungs are clear to auscultation at all stations. There is normal S1 and S2 without rubs or gallops and capillary refill is appropriate, less than 2 seconds globally. Abdomen is soft, nontender nondistended. Skin is warm and dry without cyanosis, clubbing or edema. Psychiatrically, the patient demonstrates appropriate mood and affect and is alert. Genitourinary examination with nurse food and beverage attendant remarkable for normal external genitalia without rashes or lesions, no inguinal lymphadenopathy, scant blood at the posterior aspect of the vaginal vault, minimal active bleeding at the cervix, no cervical erythema or friability, no tears or lacerations seen. There is a tiny superficial 1 cm abrasion/tear at the midline just underneath the clitoris. Current Patient Data Vital Signs Vital Signs Date Time Temp Pulse Resp B/P (MAP) Pulse Ox O2 Delivery O2 Flow Rate FiO2 11/17/21 23:30 98.3 113 14 111/78 (89) 98 Room Air 98.3 Lab Values Laboratory Tests Test 11/17/21 23:50 White Blood Count 13.0 x10^3/uL (4.0-11.0) H Red Blood Count 4.51 x10^6/uL (3.50-5.40) Hemoglobin 11.0 g/dL (12.0-15.5) L Hematocrit 33.9 % (36.0-47.0) L Mean Corpuscular Volume 75 fL (79-100) L Mean Corpuscular Hemoglobin 25 pg (25-35) Mean Corpuscular Hemoglobin Concent 33 g/dL (31-37) Red Cell Distribution Width 18.1 % (11.5-14.5) H Platelet Count 396 x10^3/uL (140-400) Neutrophils (%) (Auto) 68 % (31-73) Lymphocytes (%) (Auto) 22 % (24-48) L Monocytes (%) (Auto) 7 % (0-9) Eosinophils (%) (Auto) 3 % (0-3) Basophils (%) (Auto) 1 % (0-3) Neutrophils # (Auto) 8.8 x10^3/uL (1.8-7.7) H Lymphocytes # (Auto) 2.9 x10^3/uL (1.0-4.8) Monocytes # (Auto) 0.8 x10^3/uL (0.0-1.1) Eosinophils # (Auto) 0.4 x10^3/uL (0.0-0.7) Basophils # (Auto) 0.2 x10^3/uL (0.0-0.2) Platelet Estimate Pending Sodium Level 137 mmol/L (136-145) Potassium Level 3.7 mmol/L (3.5-5.1) Chloride Level 102 mmol/L (98-107) Carbon Dioxide Level 21 mmol/L (21-32) Anion Gap 14 (6-14) Blood Urea Nitrogen 20 mg/dL (7-20) Creatinine 0.7 mg/dL (0.6-1.0) Estimated GFR (Cockcroft-Gault) 100.4 BUN/Creatinine Ratio 29 (6-20) H Glucose Level 89 mg/dL (70-99) Calcium Level 9.1 mg/dL (8.5-10.1) Total Bilirubin 0.4 mg/dL (0.2-1.0) Aspartate Amino Transferase (AST) 29 U/L (15-37) Alanine Aminotransferase (ALT) 20 U/L (14-59) Alkaline Phosphatase 180 U/L (46-116) H Total Protein 8.0 g/dL (6.4-8.2) Albumin 3.5 g/dL (3.4-5.0) Albumin/Globulin Ratio 0.8 (1.0-1.7) L Laboratory Tests 11/17/21 23:50 Laboratory Tests 11/17/21 23:50 EKG EKG [] Radiology/Procedures Radiology/Procedures EXAM: ULTRASOUND PELVIS INDICATION: Reason: 6 days ; vaginal bleeding; evaluate for retained products / Spl. Instructions: / History: . Last menstrual period was . COMPARISON: None available. TECHNIQUE: Transabdominal sonography was performed. FINDINGS: The uterus measures 13.5 x 10.8 x 8.3 cm. The endometrial echocomplex measures 2.8 cm. The endometrial echocomplex is heterogeneous with echogenic material extending through the cervical canal. The ovaries are not seen. There is no free fluid. IMPRESSION: Complex collection in the endocervical canal, may represent hemorrhagic pr oducts. Endometrial echocomplex measures 2.8 cm Electronically signed by: Farhat Quiroz MD (11/18/2021 1:00 AM) [facility] DICTATED and SIGNED BY: FARHAT QUIROZ MD DATE: 11/18/2155 Course & Med Decision Making Course & Med Decision Making Work-up as above. As above, patient declined to provide a urine sample. Basic labs unremarkable with improved hemoglobin versus at her discharge from the hospital. Pelvic ultrasound positive for some retained products of conception in the endocervical canal. Case discussed with Dr. Escalona who is in agreement with observation admission with a plan for D&C later in the morning. Patient agreeable. All questions have been answered. Dragon Disclaimer Dragon Disclaimer This electronic medical record was generated, in whole or in part, using a voice recognition dictation system. Departure Departure Impression: Primary Impression: Retained products of conception Disposition: ADMITTED INPATIENT Condition: STABLE Referrals: NO PCP (PCP) CAITLIN DAMIAN MD Nov 18, 2021 02:52
[2021-11-18] MEDS ORDERED: ONDANSETRON PF 4 MG/2 ML VIAL. IVP PRN (03:00)
[2021-11-18] MEDS ORDERED: IV DEXTROSE 5%-LACT RINGERS 1,000 ML IV ONE (03:30)
[2021-11-18 04:30] VITALS: BP 110/58
[2021-11-18 05:00] LABS: % BANDS 2 % (0-9); % EOS 2 % (0-5); % LYMPHS 19 % (24-48); % MONOS 4 % (0-10); % SEGS 73 % (35-66); ANISOCYTOSIS SLIGHT; HYPOCHROMIA SLIGHT; PLT ESTIMATE ADEQUATE (ADEQUATE)
[2021-11-18 08:55] VITALS: BP 123/58
[2021-11-18] MEDS ORDERED: ONDANSETRON PF 4 MG/2 ML VIAL. ONE (09:25)
[2021-11-18] MEDS ORDERED: DEXAMETHASONE SOD PHOS 4 MG/ML VIAL ONE (09:25)
[2021-11-18] MEDS ORDERED: fentaNYL PF VIAL 100 MCG/2 ML VIAL ONE (09:25)
[2021-11-18] MEDS ORDERED: PROPOFOL 10 MG/ML (20ML) VIAL. IV ONE (09:25)
[2021-11-18] MEDS ORDERED: LIDOCAINE 2% PF 5 ML VIAL. ONE (09:25)
--- NOTE | 2021-11-18 11:31 | PDOC1 ---
INSPECTOR BICYCLE H&P Date of Admission: Date of Admission: Nov 18, 2021 at 01:24 History of Present Illness: 26y s/p on 11/11/21 who present to the ER with VB. The pt had underwent an uncomplicated delivery on 11/11/21. The pt reports heavy bleeding. She reported going through 1 pad every 2 hours and has been for several days. In the ER a Hgb was found to be 11.0. An u/s performed revealed the following: Complex collection in the endocervical canal, may represent hemorrhagic products. Endometrial echocomplex measures 2.8 cm PMH: Denies PSH: Oral All: NKDA OBHx: 3 x TSVD SH: no tob, no EtOH, h/o substance abuse FH: noncontributory Past Medical History: Cardiovascular: No pertinent hx Pulmonary: No pertinent hx GI: No pertinent hx Heme/Onc: No pertinent hx Hepatobiliary: No pertinent hx Psych: No pertinent hx Rheumatologic: No pertinent hx Infectious disease: No pertinent hx Renal/: No pertinent hx Endocrine: No pertinent hx Social History: ALCOHOL: none Allergies: Coded Allergies: No Known Drug Allergies (Unverified , 04/02/20) Physical Exam: Vital Signs: Vital Signs Date Time Temp Pulse Resp B/P (MAP) Pulse Ox O2 Delivery O2 Flow Rate FiO2 11/18/21 08:55 69 20 123/58 (79) 97 Room Air 11/18/21 04:30 98.3 98.3 PE: GENERAL: No apparent distress. Alert and oriented. HEENT: Head normocephalic, atraumatic. NECK: Supple LUNGS: Clear to auscultation. HEART: RRR, S1, S2 present, pulses intact ABDOMEN: Soft, positive bowel sounds. EXTREMITIES: No cyanosis or edema. NEUROLOGIC: Normal speech, normal tone PSYCHIATRIC: Normal affect, normal mood. SKIN: No ulceration. Labs: Laboratory Tests Test 11/17/21 23:50 White Blood Count 13.0 x10^3/uL (4.0-11.0) H Red Blood Count 4.51 x10^6/uL (3.50-5.40) Hemoglobin 11.0 g/dL (12.0-15.5) L Hematocrit 33.9 % (36.0-47.0) L Mean Corpuscular Volume 75 fL (79-100) L Mean Corpuscular Hemoglobin 25 pg (25-35) Mean Corpuscular Hemoglobin Concent 33 g/dL (31-37) Red Cell Distribution Width 18.1 % (11.5-14.5) H Platelet Count 396 x10^3/uL (140-400) Neutrophils (%) (Auto) 68 % (31-73) Lymphocytes (%) (Auto) 22 % (24-48) L Monocytes (%) (Auto) 7 % (0-9) Eosinophils (%) (Auto) 3 % (0-3) Basophils (%) (Auto) 1 % (0-3) Neutrophils # (Auto) 8.8 x10^3/uL (1.8-7.7) H Lymphocytes # (Auto) 2.9 x10^3/uL (1.0-4.8) Monocytes # (Auto) 0.8 x10^3/uL (0.0-1.1) Eosinophils # (Auto) 0.4 x10^3/uL (0.0-0.7) Basophils # (Auto) 0.2 x10^3/uL (0.0-0.2) Segmented Neutrophils % 73 % (35-66) H Band Neutrophils % 2 % (0-9) Lymphocytes % 19 % (24-48) L Monocytes % 4 % (0-10) Eosinophils % 2 % (0-5) Platelet Estimate Adequate (ADEQUATE) Giant Platelets Occ Hypochromasia Slight Anisocytosis Slight Sodium Level 137 mmol/L (136-145) Potassium Level 3.7 mmol/L (3.5-5.1) Chloride Level 102 mmol/L (98-107) Carbon Dioxide Level 21 mmol/L (21-32) Anion Gap 14 (6-14) Blood Urea Nitrogen 20 mg/dL (7-20) Creatinine 0.7 mg/dL (0.6-1.0) Estimated GFR (Cockcroft-Gault) 100.4 BUN/Creatinine Ratio 29 (6-20) H Glucose Level 89 mg/dL (70-99) Calcium Level 9.1 mg/dL (8.5-10.1) Total Bilirubin 0.4 mg/dL (0.2-1.0) Aspartate Amino Transferase (AST) 29 U/L (15-37) Alanine Aminotransferase (ALT) 20 U/L (14-59) Alkaline Phosphatase 180 U/L (46-116) H Total Protein 8.0 g/dL (6.4-8.2) Albumin 3.5 g/dL (3.4-5.0) Albumin/Globulin Ratio 0.8 (1.0-1.7) L Laboratory Tests 11/17/21 23:50 Laboratory Tests 11/17/21 23:50 Laboratory Tests 11/17/21 23:50 Assessment & Plan: A/P 26y s/p on 11/11/21 with possible retained POC 1.) Retained POC discussed suction D&C with the pt. She states that since her bleeding has slowed greatly she would like expectant management 2.) Anemia Hgb 8.2 at time of d/c. 11.0 on admission, will repeat, if stable will allow pt d/c 3.) H/o substance abuse last UDS performed on 11/09. Pos for cocaine 4.) No care CARMEN VILLASENOR MD Nov 18, 2021 11:31
[2021-11-18 12:12] LABS: BASO # 0.1 x10^3/uL (0.0-0.2); BASO % 1 % (0-3); EOS # 0.4 x10^3/uL (0.0-0.7); EOS % 4 % (0-3); HEMATOCRIT 36.4 % (36.0-47.0); HEMOGLOBIN 11.7 g/dL (12.0-15.5); LYMPH # 1.8 x10^3/uL (1.0-4.8); LYMPH % 20 % (24-48); MEAN CORPUSCULAR HEMOGLOBIN 25 pg (25-35); MEAN CORPUSCULAR HGB CONC 32 g/dL (31-37); MEAN CORPUSCULAR VOLUME 76 fL (79-100); MONO # 0.3 x10^3/uL (0.0-1.1); MONO % 3 % (0-9); NEUT # 6.6 x10^3/uL (1.8-7.7); NEUT % 72 % (31-73); PLATELET COUNT 394 x10^3/uL (140-400); RED BLOOD COUNT 4.77 x10^6/uL (3.50-5.40); RED CELL DISTRIBUTION WIDTH 18.3 % (11.5-14.5); WHITE BLOOD COUNT 9.1 x10^3/uL (4.0-11.0)
[2021-11-18 12:45] VITALS: BP 120/63
[2021-11-18 15:15] VITALS: BP 126/77
== END 2021-11-18 15:45 | disposition home or self-care (01) | DRG 776 ==
LOC: ER 22:51 → 3 NORTH 11-18 01:24 → 3 SO LND 11-18 02:44
PROVIDERS: ADMIT Obstetrics & Gynecology; ATTEND Obstetrics & Gynecology
DX: O72.2 Delayed and secondary postpartum hemorrhage (principal); O90.81 Anemia of the puerperium; D64.9 Anemia, unspecified; Z87.891 Personal history of nicotine dependence
CPT/HCPCS: 36415; 76856; 80053; 85007; 85025; G0378; J1100; J2405; J2704; J3010; 99285-25